=== PATIENT | female | born 1995 | race Caucasian/White ===

== ENCOUNTER 2017-11-27 08:21 | Emergency (ER) | payer BC ==
[2017-11-27 08:30] VITALS: BP 113/73
--- NOTE | 2017-11-27 09:03 | UC ---
FLU HPI - HPI Summary HPI Summary: accompanied by mother, states she started with chills, nasal congestion, dry cough and malaise yesterday. - History of Current Complaint Chief Complaint: UCGeneralIllness Stated Complaint: FLU SYMPTOMS Time Seen by Provider: 11/27/17 08:24 Hx Obtained From: Patient, Family/Burlapper Hx Last Menstrual Period: iud ?: No Onset/Duration: Sudden Onset, Lasting Days Severity Currently: Moderate Severity Initially: Mild Pain Intensity: 4 Associated Signs & Symptoms: Positive: Fever, Cough, Nasal Congestion - Risk Factors Influenza Risk Factors: Negative - Allergy/Home Medications Allergies/Adverse Reactions: Allergies Allergy/AdvReac Type Severity Reaction Status Date / Time No Known Allergies Allergy Verified 11/27/17 08:26 PMH/Surg Hx/FS Hx/Imm Hx Previously Healthy: Yes Psychological History: Anxiety, Depression - Surgical History Surgical History: None - Family History Known Family History: Positive: Unknown - Social History Alcohol Use: None Substance Use Type: None Smoking Status (MU): Never Smoked Tobacco Review of Systems Constitutional: Fever ENT: Nasal Discharge Respiratory: Cough All Other Systems Reviewed And Are Negative: Yes Physical Exam Triage Information Reviewed: Yes Appearance: Ill-Appearing Vital Signs: Initial Vital Signs Temp 97.7 F 11/27/17 08:27 Pulse 94 11/27/17 08:27 Resp 16 11/27/17 08:27 BP 113/73 11/27/17 08:27 Pulse Ox 100 11/27/17 08:27 Vital Signs Reviewed: Yes Eye Exam: Normal ENT Exam: Normal Dental Exam: Normal Neck exam: Normal Respiratory Exam: Normal Cardiovascular Exam: Normal Abdominal Exam: Normal Bowel Sounds: Positive: Present Flu Course/Dx - Course Course Of Treatment: positive for influenza A. Start tamiflu as prescribed. Take plenty of oral fluids - Differential Dx/Diagnosis Provider Diagnoses: Influenza A Discharge - Discharge Plan Condition: Stable Disposition: HOME Patient Education Materials: Influenza (ED) Referrals: Linda Linn MD [Primary Care Provider] -
== END 2017-11-27 09:10 | disposition home or self-care (01) ==
LOC: UCEAST 08:21
DX: J09.X2 Influenza due to identified novel influenza A virus with other respiratory manifestations (principal)
CPT/HCPCS: 87502; 99212; G0463